=== PATIENT | male | born 1995 | race Caucasian/White ===

== ENCOUNTER 2018-03-12 10:46 | Emergency (ER) | payer OTHER, BC ==
--- NOTE | 2018-03-12 10:59 | EDM.PDOC ---
ED HPI GENERAL MEDICAL PROBLEM - General Chief Complaint: Laceration Stated Complaint: Lac to right lower lip Time Seen by Provider: 03/12/18 10:52 Source of Information: Reports: Patient, RN, RN Notes Reviewed History Limitations: Reports: No Limitations - History of Present Illness INITIAL COMMENTS - FREE TEXT/NARRATIVE: Patient presents to the ED at [facility] after he sustained a laceration to the right lower lip. 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 No previous injury or trauma. This is a work related injury. Onset: Today, Sudden Onset Date: 03/12/18 ED ROS GENERAL - Review of Systems Review Of Systems: See Below Constitutional: Denies: Fever, Chills HEENT: Reports: No Symptoms Respiratory: Denies: Shortness of Breath, Cough Cardiovascular: Denies: Chest Pain, Palpitations Skin: Reports: Wound (right lower lip/chin) Neurological: Reports: No Symptoms. Denies: Dizziness, Headache ED EXAM, SKIN/RASH Exam: See Below Exam Limited By: No Limitations General Appearance: Alert, No Apparent Distress Throat/Mouth: Normal Inspection, Normal Oropharynx, No Airway Compromise Head: Atraumatic, Normocephalic Neck: Supple Respiratory/Chest: No Respiratory Distress, Lungs Clear, Normal Breath Sounds Cardiovascular: Normal Peripheral Pulses, Regular Rate, Rhythm Neurological: Alert, Oriented Skin: Warm, Dry, Normal Color, Wound/Incision (1cm horizontal laceration to the right lower chin/lip area; low grade venous ooze; no evidence of infection or foreign body) ED SKIN PROCEDURES - Laceration/Wound Repair Right Other Lac/Wound length In cm: 1 (Right lower chin/lip) Appearance: Subcutaneous Distal NVT: Neuro & Vascular Intact Anesthetic Type: Local Local Anesthesia - Lidocaine (Xylocaine): 2% with EPI Local Anesthetic Volume: 3cc Skin Prep: Chlorhexidine (Hibiciens), Saline Exploration/Debridement/Repair: Wound Explored, In a Bloodless Field, Explored to Base, No Foreign Material Found Closed with: Sutures Suture Size: 4-0 # of Sutures: 3 Suture Type: Nylon, Interrupted, Simple Sterile Dressing Applied: Provider Tetanus Status Addressed: Yes Complications: No Course - Orders/Labs/Meds Meds: Medications Discontinued Medications Generic Name Dose Route Start Last Admin Trade Name Freq PRN Reason Stop Dose Admin Lidocaine/Epinephrine 20 ml 03/12/18 11:02 Xylocaine 2% With Epinephrine 1:100,000 INJECT 03/12/18 11:03 ONETIME ONE Departure - Departure Time of Disposition: 11:33 Disposition: Home, Self-Care 01 Condition: Good Clinical Impression: Encounter related to worker's compensation claim Laceration of chin Qualifiers: Encounter type: initial encounter Qualified Code(s): S01.81XA - Laceration without foreign body of other part of head, initial encounter Facial injury Qualifiers: Encounter type: initial encounter Qualified Code(s): S09.93XA - Unspecified injury of face, initial encounter - Discharge Information Instructions: Laceration Care, Adult, Wound Check, Sutured Wound Care, Easy-to- Read Referrals: Jordan Meier NP [Emergency Provider] - 03/22/18 (Follow up in ten days at [facility]) Forms: ED Department Discharge Additional Instructions: 1. Stay well hydrated and rest 2. Keep bandage on for 24 hours, then remove 3. May shower/bathe as usual 4. Suture stay in for 10 days 5. Make appointment at [facility] for 10 days recheck and suture removal - Problem List Review Problem List Initiated/Reviewed/Updated: Yes - Assessment/Plan Assessment:: Chin/Lip Laceration
[2018-03-12] MEDS ORDERED: Lidocaine 2% with EPINEPHrine 1:100,000 20 ML MDV INJECT ONE (11:02)
== END 2018-03-12 11:44 | disposition home or self-care (01) ==
LOC: VM.ED 10:46
DX: S01.511A Laceration without foreign body of lip, initial encounter (principal); S09.93XA Unspecified injury of face, initial encounter; W22.8XXA Striking against or struck by other objects, initial encounter; Y99.0 Civilian activity done for income or pay
CPT/HCPCS: 12011; 99283